=== PATIENT | male | born 1995 | race Two or more races ===

== ENCOUNTER 2024-11-01 21:49 | Observation (INO) | payer MEDICAID, SELFPAY ==
[2024-11-01 21:53] VITALS: BMI 31.2
[2024-11-01 22:25] VITALS: BP 132/80; PULSE 72; RESP 18; TEMP 37.4; O2SAT 98
--- NOTE | 2024-11-01 22:47 | XR_ITS ---
Examination: CT abdomen with intravenous contrast CT pelvis with intravenous contrast 2-D coronal reconstructions 2-D sagittal reconstructions Date and time of exam:November 02, 2024, 0018 hrs. Indications: Epigastric pain beginning this evening. CTDI: vol (mGy) 9.76 DLP: (mGycm) 532 Technique: Multiple axial sections of the abdomen and pelvis have been obtained. 64 slice high-resolution scanner used. 3 mm axial sections have been obtained, post intravenous injection 60 cc [id number] 2-D sagittal, coronal reconstructions obtained. Low dose protocols were performed. One or more of the following dose reduction techniques were used; automated exposure control, adjustment of the mA and/or KV according to patient size, use of iterative reconstruction technique. Findings: No focal liver or splenic lesion No gallstones No pancreatic or adrenal mass No hydronephrosis Thickened inflamed appendix medial to the cecum, axial images 122 through 144, no pelvic abscess Bladder intact Impression: Acute appendicitis
--- NOTE | 2024-11-01 22:49 | PD.EDRME ---
Rapid Medical Screening Exam RME Arrival date/time: 11/01/24 21:49 29-year-old male reports with complaints of severe epigastric abdominal and left upper and lower quadrant pain x 2 hours Chief Complaint: Abdominal Pain Time Seen by Provider: 11/01/24 22:21 Vital signs: Vital Signs Temperature 99.4 F 11/01/24 22:25 Pulse Rate 72 11/01/24 22:25 Respiratory Rate 18 11/01/24 22:25 Blood Pressure 132/80 H 11/01/24 22:25 Pulse Oximetry (%) 98 11/01/24 22:25 Oxygen Delivery Method Room Air 11/01/24 22:25
[2024-11-01 23:06] LABS: Collection Type, Urine Clean Catch; RBC,Urine 0 /hpf (0-3); WBC,Urine 0 /hpf (0-5)
[2024-11-01 23:25] LABS: Amorphous Crystals,Urine Present (Absent); Bilirubin,Urine Negative (Negative); Blood,Urine Negative (Negative); Clarity,Urine Turbid (Clear/Hazy); Color,Urine Yellow (Lt Yel-Yel); Culture Indicated,Urine Not Indicated; Glucose, Urine Negative (Negative); Ketones,Urine Negative (Negative); Leukocyte Esterase,Urine Negative (Negative); Nitrite,Urine Negative (Negative); PH,Urine 7.5 (5.0-7.0); Protein,Urine Negative (Neg - Trace); Specific Gravity,Urine 1.023 (1.001-1.035); Squamous Epithelial Cell,Urine < 1 /hpf (0-5); Urobilinogen,Urine Negative mg/dL (0.0-1.0)
[2024-11-01 23:34] LABS: Basophils # (Auto) 0.0 Thou/mm3 (0.0-0.2); Basophils % (Auto) 0 % (0-2.5); Eosinophils # (Auto) 0.1 Thou/mm3 (0.0-0.5); Eosinophils % (Auto) 1 % (0-10); Hematocrit 43.3 % (41.0-53.0); Hemoglobin 14.6 g/dL (13.5-16.0); Immature Granulocytes Auto 0.07 Thou/mm3 (0.00-0.00); Lymphocytes # (Auto) 2.3 Thou/mm3 (1.0-4.8); Lymphocytes % (Auto) 16 % (10-50); Mean Corpuscular HGB Conc 33.7 g/dl (31.0-37.0); Mean Corpuscular Hemoglobin 29.2 pg (25.0-35.0); Mean Corpuscular Volume 87 fL (80-100); Monocytes # (Auto) 0.7 Thou/mm3 (0.0-0.8); Monocytes % (Auto) 5 % (0-12); Neutrophils # (Auto) 10.7 Thou/mm3 (1.8-7.7); Neutrophils % (Auto) 77 % (37-80); Nucleated Red Blood Cell # 0.00 Thou/mm3 (0.00-0.00); Nucleated Red Blood Cell % 0 /100 WBC (0); Platelet Count 371 Thou/mm3 (140-440); RDW Standard Deviation 42.2 fL (35.1-43.9); Red Blood Count 5.00 Miln/mm3 (4.50-5.90); White Blood Count 13.9 Thou/mm3 (3.8-10.6)
[2024-11-01] MEDS: MORPHINE SULF INJ 4 MG/ML VIAL 2 MG IV (23:34)
[2024-11-01] MEDS: PROMETHAZINE INJ 25 MG/ML VIAL 12.5 MG IM (23:36)
[2024-11-01 23:52] LABS: Alanine Aminotransferase 35 U/L (10-49); Albumin, Serum 4.7 gm/dL (3.5-5.0); Albumin/Globulin Ratio 1.9 (1.2-2.2); Alkaline Phosphatase 124 U/L (46-116); Anion Gap 11 (7-16); Aspartate Amino Transferase 25 U/L (0-34); BUN/Creatinine Ratio 12 Ratio (12-20); Bilirubin,Total 0.4 mg/dL (0.3-1.2); Blood Urea Nitrogen 11 mg/dL (9-23); Calcium 9.1 mg/dL (8.3-10.6); Calcium (Corrected) 9.1 mg/dL (8.5-10.1); Carbon Dioxide 24.1 mMol/L (20.0-31.0); Chloride 107 mMol/L (98-107); Creatinine (Component) 0.9 mg/dL (0.6-1.3); Estimated Creatinine Clearance 111.3 mL/min (>60); Globulin 2.5 gm/dL (2.3-3.5); Glucose 125 mg/dL (74-106); Lipase 27 U/L (12-53); Osmolality,Calculated 283 (275-295); Potassium 3.4 mMol/L (3.4-5.1); Sodium 142 mMol/L (136-145); Total Protein 7.2 gm/dL (5.7-8.2); eGFR > 60 See Note
[2024-11-02] VITALS (10 sets, daily range): BP systolic 120–153; BP diastolic 70–91; PULSE 56–98; RESP 12–25; TEMP 36.1–37.2; O2SAT 95–100; BMI 32.9
--- NOTE | 2024-11-02 02:00 | PRELIM_ITS ---
CT scan of the abdomen and pelvis with intravenous contrast (axial sections with sagittal and coronal reformats) November 02, 2024 0015 hours Clinical History: Epigastric and left upper and lower abd pain. Comparison: None available at the time of this report. Findings: The lung bases are clear. The liver, gallbladder, pancreas, spleen, kidneys and adrenals are unremarkable. No evidence of bowel obstruction. Thickening of the appendix measuring up to 1.5 cm associated with peripheral fat stranding, no perforation, no collections there is no mesenteric or retroperitoneal adenopathy. The urinary bladder is unremarkable. There is no free fluid or free air. The osseous structures are unremarkable. Impression: Acute appendicitis. Surgical consult is recommended. Discussion Details: Results verbally communicated to : Dr. Alexandre at 01:53 AM 11/02/2024 Report Electronically Signed By: Gregorio Rapp 11/02/2024 2:00:20 AM [EST]
[2024-11-02] MEDS: MORPHINE SULF INJ 4 MG/ML VIAL IVP (02:19)
--- NOTE | 2024-11-02 02:24 | EDNOTE_ITS ---
ED Abdominal Pain RME/HPI General Chief Complaint: Abdominal Pain Stated complaint: ABD PAIN Time seen by provider: 11/01/24 22:21 Arrival date/time: 11/01/24 21:49 RME / HPI RME / HPI narrative: 11/01/24 21:49 29-year-old male reports with complaints of severe epigastric abdominal and left upper and lower quadrant pain x 2 hours 29-year-old male without significant past medical history with mid abdominal pain starting last night with nausea but no vomiting. No prior episodes. Patient has no significant past medical history. No fevers. Related Data Allergies Allergy/AdvReac Type Severity Reaction Status Date / Time No Known Allergies Allergy Verified 11/01/24 21:56 Review of Systems Review of Systems Systems Reviewed: All systems reviewed, normal except as documented ED Exam Narrative Physical exam: Generally patient is alert and oriented x 3 mild distress secondary to pain heart is regular rate and rhythm, lungs clear to auscultation equal bilaterally, abdomen soft bowel sounds present nondistended bilateral lower quadrant abdominal tenderness with a positive Rovsing sign without obvious rebound. Course Quality Measures none Orders Category Date Time Status CT Screening NOW Care 11/01/24 22:[address] abdomen pelvis w con Stat Exams 11/01/24 22:47 Taken CBC Stat Lab 11/01/24 23:20 Completed CMP [Comprehensive Metabolic Panel] Stat Lab 11/01/24 23:20 Completed Lipase Stat Lab 11/01/24 23:20 Completed UA, C/S IF [Urinalysis, C/S if Indicated] Stat Lab 11/01/24 23:00 Completed Morphine* Inj Med 11/01/24 23:14 Discontinued 2 mg IV X1 ONE Morphine* Inj Med 11/02/24 02:14 Discontinued 4 mg IVP X1 ONE Promethazine Inj [Phenergan Inj] Med 11/01/24 23:14 Discontinued 12.5 mg IM X1 ONE cefTRIAXone/D5w 1gm IV premix [Rocephin/D5w 1gm IV Med 11/02/24 02:17 Active premix] 1 gm in 50 ml IV X1 metroNIDAZOLE/NS 500 MG IVPB [Flagyl 500 mg IV] Med 11/02/24 02:17 Active 500 mg in 100 ml IV X1 Vital Signs Vital signs: Vital Signs Temperature 99.4 F 11/01/24 22:25 Pulse Rate 72 11/01/24 22:25 Respiratory Rate 18 11/01/24 22:25 Blood Pressure 132/80 H 11/01/24 22:25 Pulse Oximetry (%) 98 11/01/24 22:25 Oxygen Delivery Method Room Air 11/01/24 22:25 Abdominal Pain MDM MDM Narrative MDM Narrative:: I interpreted all labs. CT scan shows evidence for an enlarged appendix with periappendiceal inflammatory changes. Patient received Rocephin 1 g IV and Flagyl 500 mg IV. He was given morphine 4 mg IV and Zofran 4 mg IV. I did discuss this case with general surgeon, Dr. Angel and the patient will be admitted to the hospital for further treatment and evaluation for the patient's acute appendicitis. Patient data External records reviewed:: Other (specify) Clinical information provided by:: patient Social determinants that could affect healthcare access:: none Patient has the following chronic illnesses:: None How is presenting disease/condition affected by chronic disease/condition?: no chronic disease Evaluation data The following diagnostics were reviewed and interpreted by me:: lab results and radiology exam(s) Lab and/or radiology exams considered but not ordered:: None Interpretation Summary: None Medications / Prescriptions Medications or Prescriptions considered but not ordered:: None Medication administrations:: Medication Administration History Ceftriaxone Sodium/Dextrose (Rocephin/D5w 1gm Iv Premix) 1 gm in 50 mls @ 100 mls/hr IV X1 ONE Stop: 11/02/24 02:46 Metronidazole (Flagyl 500 Mg Iv) 500 mg in 100 mls @ 100 mls/hr IV X1 ONE Stop: 11/02/24 03:16 Discontinued Medications Morphine Sulfate (Morphine Sulf Inj 4 Mg/Ml Vial) 2 mg IV X1 ONE Stop: 11/01/24 23:15 Last Admin: 11/01/24 23:34 Dose: 2 mg Documented By: GEORGES Morphine Sulfate (Morphine Sulf Inj 4 Mg/Ml Vial) 4 mg IVP X1 ONE Stop: 11/02/24 02:15 Last Admin: 11/02/24 02:19 Dose: 4 mg Documented By: RUBEN Promethazine HCl (Promethazine Inj 25 Mg/Ml Vial) 12.5 mg IM X1 ONE; Protocol Stop: 11/01/24 23:15 Last Admin: 11/01/24 23:36 Dose: 12.5 mg Documented By: GEORGES None Consultations Consultation(s) initiated? (list below): No Diagnosis Differential diagnosis abdominal pain: abdominal pain, acute appendicitis and calculus of kidney Most likely diagnosis given after review of the tests above:: None Admission Indicated Admission indicated?: indicated Admission Request Was there a request for admission?: Yes Admission Attestation Admission request attestation: Discussed case with [] from Hospitalist service regarding admission. Discussed patients ED course, exam findings, labs, and radiology results. The Hospitalist [agrees,declines] to accept the patient for admission. Disposition Plan Disposition Plan: Admit Discharge Plan Plan Patient Disposition: Admit Acute Care w/in Hospital Prescriptions/Referrals Referrals: Elgin Garrison PA-C [Primary Care Provider] - In 1 week Problem List Clinical Impression: Acute appendicitis Patient/Caregiver Discharge Instructions Print Language: Kazakh Stand Alone Forms: Leticia Award Info., Patient Portal Info Letter
[2024-11-02] MEDS: cefTRIAXone/D5w 1gm IV premix 1 GM/50 ML BAG IV (03:04)
[2024-11-02] MEDS: SODIUM CHLORIDE 0.9% 1000 ML 1,000 ML 100 ML IV (03:04)
[2024-11-02] MEDS: ONDANSETRON INJ 2 MG/ML INJ 2 ML 4 MG IVP (04:03)
[2024-11-02] MEDS: metroNIDAZOLE/NS 500 MG IVPB 500 MG/100 ML BAG 100 MG IV (04:04)
--- NOTE | 2024-11-02 06:46 | PD.SURHP ---
HPI Date of Admission 11/02/24 02:25 Chief Complaint Chief Complaint: Patient is admitted with a diagnosis of acute appendicitis HPI History of present illness revealed that the patient was in his usual health until around 5 PM last night when he developed pain in the epigastric region. He had 3 episodes of vomiting. He had a normal diet last night. He had a BM yesterday. He is working as a construction. Patient denies any fever or chills. The pain is stayed in the upper abdomen and has not moved down to the right lower quadrant. Patient denies any such pain in the past. His past medical history is essentially unremarkable and he has had no surgery in the past Past Medical History Past Medical History CARDIAC: Negative Cardiac Disorders or Congestive Heart Failure RESPIRATORY: Negative Chronic Obstructive Pulmonary Disease (COPD) or Asthma GENITOURINARY: Negative Renal Disease ENDOCRINE: Negative Diabetes Mellitus Type 1 or Diabetes Mellitus Type 2 HEMATOLOGIC: Negative Sickle Cell Disease Social History SMOKING STATUS: Never smoker Meds Home Medications and Allergies Home Medications ?Medication ?Instructions ?Recorded ?Confirmed ?Type ketotifen fumarate 0.025 % (0.035 1 drp ophthalmic (eye) Q12H 11/02/24 11/02/24 History %) eye drops loratadine 10 mg tablet 10 mg PO DAILY 11/02/24 11/02/24 History Allergies Allergy/AdvReac Type Severity Reaction Status Date / Time No Known Allergies Allergy Verified 11/01/24 21:56 Exam Vital Signs Temp Pulse Resp BP Pulse Ox O2 Del Method 97.8 F 66 16 127/78 98 Room Air 11/02/24 04:00 11/02/24 04:00 11/02/24 04:00 11/02/24 04:00 11/02/24 04:00 11/02/24 04:00 Quality Measures Quality Measures none
--- NOTE | 2024-11-02 06:48 | PD.SURHP ---
HPI Date of Admission 11/02/24 02:25 HPI History of present illness revealed that the patient was in his usual health until around 5 PM last night when he developed pain in the epigastric region. He had 3 episodes of vomiting. He had a normal diet last night. He had a BM yesterday. He is working as a construction. Patient denies any fever or chills. The pain is stayed in the upper abdomen and has not moved down to the right lower quadrant. Patient denies any such pain in the past. His past medical history is essentially unremarkable and he has had no surgery in the past Past Medical History Past Medical History CARDIAC: Negative Cardiac Disorders or Congestive Heart Failure RESPIRATORY: Negative Chronic Obstructive Pulmonary Disease (COPD) or Asthma GENITOURINARY: Negative Renal Disease ENDOCRINE: Negative Diabetes Mellitus Type 1 or Diabetes Mellitus Type 2 HEMATOLOGIC: Negative Sickle Cell Disease Social History SMOKING STATUS: Never smoker Meds Home Medications and Allergies Home Medications ?Medication ?Instructions ?Recorded ?Confirmed ?Type ketotifen fumarate 0.025 % (0.035 1 drp ophthalmic (eye) Q12H 11/02/24 11/02/24 History %) eye drops loratadine 10 mg tablet 10 mg PO DAILY 11/02/24 11/02/24 History Allergies Allergy/AdvReac Type Severity Reaction Status Date / Time No Known Allergies Allergy Verified 11/01/24 21:56 Exam Vital Signs Temp Pulse Resp BP Pulse Ox O2 Del Method 97.8 F 66 16 127/78 98 Room Air 11/02/24 04:00 11/02/24 04:00 11/02/24 04:00 11/02/24 04:00 11/02/24 04:00 11/02/24 04:00 Narrative Exam Physical examination revealed slightly obese male who is about 5 foot 6 inches tall weighing 204 pounds. His vital signs are normal Routine Abdominal Exam Comments: Examination of the abdomen showed mild tenderness in the epigastric region and some tenderness in the right lower quadrant. The patient does not have any rigidity or guarding or rebound tenderness. Bowel sounds are present and active Routine Rectal Exam Comments: Deferred Routine Extremities Exam Comments: Within normal limits Results Results: Laboratory Laboratory Narrative: Patient's laboratory workup showed leukocytosis around 13,000 with a shift to the left Results: Imaging Imaging narrative: CT scan showed acute appendicitis Assessment & Plan Additional Assessment Additional comments: Impression: Acute appendicitis Mild obesity Plan Plan: I had a discussion with this patient and his regarding the treatment options. I offered him a laparoscopic appendectomy or antibiotic treatment. The antibiotic treatment would control the infection but he may develop another episode of appendicitis in future. The surgical procedure will be through the laparoscope and if possible open approach with the right lower quadrant incision. Complications like wound infection and bleeding or injury to the bowel were explained. Patient is agreeable. Quality Measures Quality Measures none
--- NOTE | 2024-11-02 08:24 | ESOP_ITS ---
Date of Procedure 11/02/24 Pre Op Diagnosis Acute appendicitis Post Op Diagnosis Same Procedure Laparoscopic appendectomy Findings Patient was found to have appendix which was dilated and medial to the cecum Procedure Description After the patient was placed in supine position and anesthesia was administered with endotracheal intubation. Abdomen was prepped with ChloraPrep solution and draped in a sterile manner. A timeout was performed and a small incision was made just above the umbilicus. Fascia was cleaned and Veress needle was i nserted to obtain a pneumoperitoneum up to 15 mmHg. Then I introduced a 12 mm trocar at the umbilicus with a 10 mm camera. Patient was kept in Trendelenburg position with the left lateral tilt. Intra-abdominal organs were visualized and this showed omentum covering the right lower quadrant. A 5 mm trocar was inserted in the right lower quadrant under direct vision and using a laparoscopic [place] I move the omentum and identified the appendix. Appendix was inflamed in its entire length and was located medial to the cecum. Another 5 mm trocar was inserted in the left lower quadrant under direct vision and using Harmonic poppy I dissected the mesoappendix cauterizing the vessels. When the base of the appendix was reached this was stapled using an Endo cutter 35 power ericka. Then the appendix was retrieved through the Endopouch through the umbilical port. Then after irrigating and cleaning the pelvis and the right lower quadrant all the trocars were pulled out and the pneumoperitoneum was let out. Fascia was closed with interrupted 0 Ethibond and then I injected half percent Marcaine with epinephrine for analgesia. Skin was then closed with interrupted 4-0 Monocryl stitches and a Tegaderm dressing was applied. Patient tolerated the procedure well and returned to recovery room in stable condition. Anesthesia GETA Pathology / specimen Other (Appendix) IVF Infused 750 Estimated Blood Loss 40 Surgeon Benja Angel MD Surgical Staff Operation Date: 11/02/24 07:00 Case Staff MACHINE FEEDER RAW STOCK: Jaden Hooks RN First Assistant: Elda Jones
--- NOTE | 2024-11-02 08:39 | SUR.PHASEI ---
pt arrived to PACU via gurney, nasal airway was removed upon arrival, breathing unlabored, pt drowsy-opens eyes to voice or touch, dressing to abdomen clean, dry, and intact, report from Heriberto CARPENTER and Tolu MENA
--- NOTE | 2024-11-02 09:00 | SUR.PHASEI ---
pt tolerating ice chips without difficulty swallowing or n/v
--- NOTE | 2024-11-02 09:14 | SUR.PHASEI ---
pt awake, alert, able to follow commands, breathing unlabored, dressing to abdomen clean, dry, and intact, report called to Qian CARPENTER, pt transferred to room at this time
== END 2024-11-02 18:21 | disposition home or self-care (01) ==
LOC: SERX 11-02 02:27 → SERHOLD 11-02 03:03 → S3NX 11-02 03:26
PROVIDERS: Physician Assistant; Admitting Provider Surgery; Emergency Provider Emergency Medicine; PCP Physician Assistant; Visit Provider Surgery
PROC: 0DTJ4ZZ Resection of Appendix, Percutaneous Endoscopic Approach (ICD-10-PCS; CPT 44970; principal; 2024-11-02 07:00)
DX: K35.30 Acute appendicitis with localized peritonitis, without perforation or gangrene (principal); E66.9 Obesity, unspecified; Z68.32 Body mass index [BMI] 32.0-32.9, adult
CPT/HCPCS: 44970; 36415; 74177; 80053; 81001; 83690; 85025; 96372; 96374; 96375; 99284; A4217; A4649; C1713; G0378; J0131; J0696; J1171; J1885; J2250; J2270; J2405; J2550; J2704; J3010; J3490; J7030; Q9967; J1596; J1836